=== PATIENT | female | born 1975 ===

== ENCOUNTER → 2017-12-14 | Outpatient (CLI) | payer OTHER | LOC: OD 10:15 | PROVIDERS: ATTEND Orthopaedic Surgery Sports Medicine | DX: Z11.2 Encounter for screening for other bacterial diseases (principal) | CPT/HCPCS: 87070 ==

== ENCOUNTER → 2018-04-06 | Outpatient (CLI) | payer OTHER | LOC: OD 14:42 | PROVIDERS: ATTEND Orthopaedic Surgery Sports Medicine | DX: Z11.2 Encounter for screening for other bacterial diseases (principal) | CPT/HCPCS: 87070 ==